=== PATIENT | male | born 1965 | race Caucasian/White ===

== ENCOUNTER 2020-10-01 20:07 | Emergency (ER) | payer MEDICAID ==
[~2020-10-01] VITALS: Ht 165.1 cm; Wt 95.3 kg
--- NOTE | 2020-10-01 20:08 | NUR ---
PT AAOX4. BIBEMS C/O DIZZINESS X2 DAYS, HEADACHE X1 DAY, NAUSEA X1 HOUR BAT BOY/GIRL. PT PLACED IN BED 9 ON WASHER OFF AND PULSE OX. NO NEURO DEFICIT, VSS. ER MD AT BEDSIDE FOR EVAL, AWAITING ORDERS.
--- NOTE | 2020-10-01 20:16 | NUR ---
LINE ESTABLISHED LAC 20G, BLOOD WORK COLLECTED, SENT TO LAB.
[2020-10-01] MEDS ORDERED: MECLIZINE HCL 25 MG TABLET ONE (20:25)
[2020-10-01] MEDS ORDERED: METOCLOPRAMIDE HCL 10 MG/2 ML VIAL ONE (20:25)
[2020-10-01] MEDS ORDERED: IV NS 0.9% 1,000 ML IV ONE (20:30)
[2020-10-01] MEDS ORDERED: METOCLOPRAMIDE HCL 10 MG/2 ML VIAL IV ONE (20:30)
[2020-10-01] MEDS ORDERED: MECLIZINE HCL 12.5 MG TABLET PO ONE (20:30)
--- NOTE | 2020-10-01 20:35 | NUR ---
EMT AT BEDSIDE FOR EKG
[2020-10-01 20:38] LABS: BASOPHILS % (AUTO) 0.4 % (0.0-2.0); EOSINOPHILS % (AUTO) 0.5 % (0.0-6.0); HEMATOCRIT 43 % (39-51); HEMOGLOBIN 13.8 g/dL (13.5-17.5); LYMPHOCYTES # (AUTO) 3.1 /CMM (0.8-4.8); MEAN CORPUSCULAR HGB CONC 32 g/dl (31.0-36.0); MEAN CORPUSCULAR VOLUME 82 fL (80-96); MONOCYTES # (AUTO) 0.9 /CMM (0.1-1.30); MONOCYTES % (AUTO) 6.4 % (2.0-12.0); NEUTROPHILS # (AUTO) 9.5 /CMM (1.8-8.9); NEUTROPHILS % (AUTO) 69.7 % (43.0-81.0); PLATELET COUNT (AUTO) 372 /CMM (150-450); RED BLOOD CELL COUNT(AUTO) 5.24 MIL/uL (4.5-6.0); WHITE BLOOD COUNT (AUTO) 13.6 K/uL (4.3-11.0)
[2020-10-01 20:49] LABS: CALCIUM, SERUM 9.3 mg/dL (8.5-10.1); CARBON DIOXIDE 27 mmol/L (21-32); CHLORIDE 103 mmol/L (98-107); CREATININE 1.6 mg/dL (0.6-1.3); GLUCOSE 130 mg/dL (74-106); POTASSIUM 4.4 mmol/L (3.5-5.1); SODIUM SERUM 139 mmol/L (136-145); UREA NITROGEN, BLOOD 21 mg/dL (7-18)
--- NOTE | 2020-10-01 21:10 | NUR ---
BROUGHT TO CT AND BACK.
[2020-10-01 21:14] LABS: CHOLESTEROL 174 mg/dL (<200); HDL CHOLESTEROL 46 mg/dL (40-60); LDL 113 mg/dL (0-99); TRIGLYCERIDES 113 mg/dL (30-150)
[2020-10-01] MEDS ORDERED: MECL-159 PO (21:51)
[2020-10-01] MEDS ORDERED: METO-295 PO (21:51)
--- NOTE | 2020-10-01 22:09 | NUR ---
Patient discharged to home in stable condition. Written and verbal after care instructions given. Patient verbalizes understanding of instruction and RX. Pt ambulated out of ED. VSS. Provided with blood work and xray copies.
--- NOTE | 2020-10-01 22:09 | NUR ---
IV removed. Catheter intact and site benign. Pressure and 4x4 applied to site. No bleeding noted.
[2020-10-01 22:10] VITALS: BP 129/71
== END 2020-10-01 22:11 | disposition home or self-care (01) ==
LOC: ER 20:11
DX: R42 Dizziness and giddiness (principal); I10 Essential (primary) hypertension; I25.2 Old myocardial infarction; E11.9 Type 2 diabetes mellitus without complications; Z79.899 Other long term (current) drug therapy
CPT/HCPCS: 36415; 70450; 71045; 80048; 80061; 82962; 84484; 85025; 85730; 93005; 96361; 96374; 99285; J2765; J7030; J8597